=== PATIENT | female | born 1960 | race Caucasian/White ===

== ENCOUNTER 2019-07-18 14:16 | Emergency (ER) | payer OTHER, SELFPAY ==
--- NOTE | 2019-07-18 14:20 | ED.GENADULT ---
HPI - General Adult General Chief complaint: Upper Respiratory Infection Stated complaint: COUGH/SOB Time Seen by Provider: 07/18/19 14:19 Source: patient Mode of arrival: ambulatory Limitations: no limitations History of Present Illness HPI narrative: 58-year-old female patient presents to the [facility] with complaints of cold symptoms for the past 3 days. Patient states that started with a cough and then about 2 days ago she started having fevers as well as a cough. Patient states she has body aches, chills, fatigue, coughing, runny nose, stuffy nose. Patient states that she did not get a flu shot this year. Patient states that she is still been going to work with her symptoms. Patient denies any chest pain or shortness of breath at this time. Patient states she has been taking [id number] Mucinex and Tylenol for her symptoms. Related Data Home Medications Medication Instructions Recorded Confirmed aspirin [Adult Low Dose Aspirin] 81 mg PO DAILY 07/18/19 07/18/19 bupropion HCl 300 mg PO DAILY 07/18/19 07/18/19 esomeprazole magnesium 20 mg PO DAILY 07/18/19 07/18/19 venlafaxine 150 mg PO DAILY 07/18/19 07/18/19 Allergies Allergy/AdvReac Type Severity Reaction Status Date / Time Sulfa (Sulfonamide Allergy Mild RASH Verified 03/14/18 20:37 Antibiotics) Review of Systems Review of Systems: Narrative: CONSTITUTIONAL: Positive fever, chills, body aches and sweats. EYES: Denies visual changes, redness, or discharge. ENT: Nares clear, no rhinorrhea or epistaxis. Mucous membranes moist. No CSF leak. No ecchymosis or open wounds. No obvious deformity. No septal hematoma. No honey tenderness of zygoma, maxilla, or mandible. Positive rhinorrhea, congestion, sore throat, positive otalgia. CARDIOVASCULAR: Denies chest pain, palpitations, or edema. RESPIRATORY: Positive cough, Dyspnea. GASTROINTESTINAL: Denies abdominal pain, nausea, vomiting, or diarrhea. GENITOURINARY: Denies dysuria or hematuria. SKIN: Denies rash or itching. MUSCULOSKELETAL: Denies back pain, joint pain, or myalgia. NEUROLOGIC: Denies headache, numbness, or weakness. PSYCHIATRIC: Denies anxiety or depression. [facility] Past Medical History Medical History Depression Surgical History Surgical History H/O section Social History Social History Smoking status: Never smoker Gender identity (if verbalized by the patient): Female Comments At the time of my signature I agree with nursing past medical history, surgical, social, and family history. There is no relevant family history pertinent to the presenting complaint. Exam Narrative: Exam Narrative: GENERAL: ill-appearing, well-nourished, and in no acute distress. HEAD: Normocephalic, atraumatic. EYES: PERRLA and EOMI. ENT: Nares with erythema and edema noted bilaterally, no rhinorrhea or epistaxis. Mucous membranes moist. Posterior pharynx no erythema, tonsillar edema, exudates or lesions present. Bilateral TMs are clear no erythema or foreign bodies in the canal. NECK: Supple. No lymphadenopathy CHEST: Clear to auscultation. No respiratory distress. No tripoding noted. HEART: Regular rate and rhythm. No murmur heard. Normal peripheral pulses. ABDOMEN: Soft, nontender, nondistended, normal active bowel sounds. EXTREMITIES: Normal range of motion. No edema. SKIN: Warm, dry, no rash. NEURO: No focal deficits. Alert and oriented x3. Course Vital Signs Vital signs: Vital Signs Temperature 37.8 C H 07/18/19 14:32 Pulse Rate 85 07/18/19 14:32 Respiratory Rate 07/18/19 14:32 Blood Pressure 150/90 H 07/18/19 14:32 Pulse Oximetry 97 07/18/19 14:32 Temperature 37.8 C H 07/18/19 14:32 Pulse Rate 85 07/18/19 14:32 Respiratory Rate 20 07/18/19 14:32 Blood Pressure 150/90 H 07/18/19 14:32 P
[2019-07-18 14:32] VITALS: BP 150/90; PULSE 85; RESP 20; TEMP 37.8; O2SAT 97
== END 2019-07-18 14:48 | disposition home or self-care (01) ==
PROVIDERS: Emergency Provider Nurse Practitioner Family
DX: J10.1 Influenza due to other identified influenza virus with other respiratory manifestations (principal); F32.9 Major depressive disorder, single episode, unspecified
CPT/HCPCS: 87804; 99213; G0463

== ENCOUNTER 2019-11-15 00:25 | Outpatient (CLI) | payer OTHER, SELFPAY ==
[2019-11-15 20:58] LABS: SARS-CoV-2 RNA PCR Negative
== END 2019-11-15 00:26 | disposition home or self-care (01) ==
LOC: ANHCOVIDDT 00:25
PROVIDERS: PCP Family Medicine; Visit Provider Internal Medicine Gastroenterology
DX: Z01.818 Encounter for other preprocedural examination (principal); Z11.59 Encounter for screening for other viral diseases
CPT/HCPCS: 87635; C9803; U0003

== ENCOUNTER 2019-11-18 01:36 | Day surgery (SDC) | payer OTHER, SELFPAY ==
[2019-11-15 08:38] VITALS: BMI 33.0
[2019-11-18 07:58] VITALS: BP 148/93; PULSE 92; RESP 20; TEMP 36.4; O2SAT 97
--- NOTE | 2019-11-18 08:14 | WPDANESEPPF ---
Anes - Initial Pre Proc Eval Procedure: Operation Date: 11/18/19 09:00 Proposed Procedures p Screening Colonoscopy - Shashank Hinds MD Date/Time: 11/18/19 08:14 Surgeon: Shashank Hinds MD Pre Op Diagnosis: Neoplasm Screening Patient Data Age: 59 Gender: F Height: 1.65 m Weight: 95.7 kg Last Vital Signs Temp 36.4 C 11/18/19 07:58 Pulse 92 11/18/19 07:58 Resp 20 11/18/19 07:58 BP 148/93 H 11/18/19 07:58 Pulse Ox 97 11/18/19 07:58 Allergies Allergy/AdvReac Type Severity Reaction Status Date / Time Sulfa (Sulfonamide Allergy Mild RASH Verified 11/18/19 07:53 Antibiotics) Home Medications Medication Instructions Recorded Confirmed Type aspirin [Adult Low Dose Aspirin] 81 mg PO DAILY 07/18/19 11/15/19 History bupropion HCl 300 mg PO DAILY 07/18/19 11/15/19 History esomeprazole magnesium 20 mg PO DAILY 07/18/19 11/15/19 History venlafaxine 150 mg PO DAILY 07/18/19 11/15/19 History lisinopril 20 mg PO DAILY 11/15/19 11/15/19 History loperamide [Imodium A-D] 2 mg PO DAILY 11/15/19 11/15/19 History trospium 20 mg PO DAILY 11/15/19 11/15/19 History Patient hx anesthesia problems: none Family hx anesthesia problems: none PMFSH Past Medical History Medical History (Updated 11/18/19 @ 08:16 by Anson Jimenez MD) Anxiety Asthma Depression Gastroesophageal reflux disease HTN (hypertension) IBS (irritable bowel syndrome) Obesity Surgical History Surgical History H/O section Social History Social History (Updated 11/15/19 @ 08:45 by Stephanie Patel RN) Smoking status: Current every day smoker Tobacco type: e-cigarettes/vaping Gender identity (if verbalized by the patient): Female Anes - Eval Final PreProcedure Day of Procedure 11/18/19 08:14 Patient weight: obese Heart: regular rate and rhythm Lungs: clear to auscultation and normal air movement Airway: Mallampati scale class II Neurological: alert and oriented Last oral intake: >/= 8 hours ASA classification: III Emergent: no Anesthetic plan: proceed Anesthesia type and monitoring: general GIVS Informed Consent: The patient's anesthetic plan and its attendant risks and benefits were discussed with the patient/family/POA. Questions were solicited and answers provided to the satisfaction of the patient/family/POA.
[2019-11-18] MEDS: LACTATED RINGERS 1,000 ML 150 ML IV CONT (08:16)
--- NOTE | 2019-11-18 08:26 | WPDGICN ---
Assessment and Plan Assessment and plan (1) Encounter for screening for colorectal malignant neoplasm: Code(s): Z12.11 - Encounter for screening for malignant neoplasm of colon; Z12.12 - Encounter for screening for malignant neoplasm of rectum Status: Acute Assessment and Plan: Patient presents for neoplasia screening colonoscopy. She appears to be at average risk. Colonoscopy to be performed with further recommendations subsequently. GI Consult Note Consult date/time: 11/18/19 08:26 HPI: Kaylin Reis is a 59 year old female seen in evalutation at the request of Dr Wilson Mercado. Patient presents for neoplasia screening colonoscopy. Patient's current weight appetite bowel movements are normal. Patient denies abdominal pain. Her bowel habits are normal. She denies any obvious blood in her stools. Family history is noncontributory. Review of Systems Review of Systems: All systems reviewed & are unremarkable except as noted in HPI and below PMFSH Past Medical History Medical History Anxiety Asthma Depression Gastroesophageal reflux disease HTN (hypertension) IBS (irritable bowel syndrome) Obesity Surgical History Surgical History H/O section Social History Social History Smoking status: Current every day smoker Tobacco type: e-cigarettes/vaping Gender identity (if verbalized by the patient): Female Meds Home Medications and Allergies Home Medications Medication Instructions Recorded Confirmed Type aspirin [Adult Low Dose Aspirin] 81 mg PO DAILY 07/18/19 11/15/19 History bupropion HCl 300 mg PO DAILY 07/18/19 11/15/19 History esomeprazole magnesium 20 mg PO DAILY 07/18/19 11/15/19 History venlafaxine 150 mg PO DAILY 07/18/19 11/15/19 History lisinopril 20 mg PO DAILY 11/15/19 11/15/19 History loperamide [Imodium A-D] 2 mg PO DAILY 11/15/19 11/15/19 History trospium 20 mg PO DAILY 11/15/19 11/15/19 History Allergies Allergy/AdvReac Type Severity Reaction Status Date / Time Sulfa (Sulfonamide Allergy Mild RASH Verified 11/18/19 07:53 Antibiotics) Vital Signs Vital Signs - 24 hr 11/18/19 07:58 Temperature 36.4 C Pulse Rate 92 Respiratory Rate 20 Blood Pressure 148/93 H Pulse Oximetry 97 Exam Narrative: Exam Narrative: Physical exam reveals patient to be alert. Vital signs stable. HEENT exam unremarkable. Lungs are clear to auscultation and percussion. Heart is without murmur or extra sounds. Abdominal exam bowel sounds are present soft nontender with no organomegaly. Digital external rectal exam is normal.
[2019-11-18 09:29] VITALS: BP 140/74; PULSE 82; RESP 15; O2SAT 96
[2019-11-18 09:39] VITALS: BP 141/63; PULSE 77; RESP 14; O2SAT 95
[2019-11-18 09:49] VITALS: BP 141/80; PULSE 80; RESP 18; O2SAT 99
== END 2019-11-18 10:11 | disposition home or self-care (01) ==
PROVIDERS: PCP Family Medicine; Visit Provider Internal Medicine Gastroenterology
PROC: 0DJD8ZZ Inspection of Lower Intestinal Tract, Via Natural or Artificial Opening Endoscopic (ICD-10-PCS; CPT 45378; principal; 2019-11-18 09:00)
DX: Z12.11 Encounter for screening for malignant neoplasm of colon (principal); D12.3 Benign neoplasm of transverse colon; K57.30 Diverticulosis of large intestine without perforation or abscess without bleeding; I10 Essential (primary) hypertension; J45.909 Unspecified asthma, uncomplicated; K21.9 Gastro-esophageal reflux disease without esophagitis; K58.9 Irritable bowel syndrome, unspecified; F41.8 Other specified anxiety disorders; E66.9 Obesity, unspecified; Z68.35 Body mass index [BMI] 35.0-35.9, adult; F17.290 Nicotine dependence, other tobacco product, uncomplicated; Z79.82 Long term (current) use of aspirin
CPT/HCPCS: 45385; 88305; J2001; J2704; J7120

== ENCOUNTER 2020-05-13 06:54 | Outpatient (NON) | payer OTHER, SELFPAY ==
[2020-05-13 19:55] LABS: SARS-CoV-2 RNA PCR Negative
== END 2020-05-13 06:55 ==
LOC: ANHCOVIDDT 06:59
PROVIDERS: PCP Family Medicine; Visit Provider Family Medicine
DX: R05 Cough (principal); Z20.828 Contact with and (suspected) exposure to other viral communicable diseases
CPT/HCPCS: 87635; C9803; U0003

== ENCOUNTER 2023-02-20 12:02 | Emergency (ER) | payer SELFPAY ==
[2023-02-20 12:14] VITALS: BP 134/83; PULSE 76; RESP 16; TEMP 36.2; O2SAT 97
--- NOTE | 2023-02-20 12:34 | ED.DIZZY ---
HPI - Dizziness General Chief Complaint: Upper Respiratory Infection Stated Complaint: dizziness Time Seen by Provider: 02/20/23 12:40 Source: patient Mode of arrival: ambulatory Limitations: no limitations History of Present Illness HPI Narrative: Kaylin is a 62-year-old female patient presenting to the clinic today with complaints of dizziness that began over the weekend. States that she has chronic rhinitis. Reports that she has been out of her bupropion,indapamide, and Adderall. Contacted her PCP's office and they will not refill these medications for her until she is evaluated. Also requesting refill on her albuterol inhaler. Has been out of medications x1-2 weeks Related Data Home Medications Medication Instructions Recorded Confirmed aspirin 81 mg tablet,delayed 81 mg PO DAILY 07/18/19 02/20/23 release (Adult Low Dose Aspirin) bupropion HCl 300 mg 24 hr tablet, 300 mg PO DAILY 07/18/19 02/20/23 extended release esomeprazole magnesium 20 mg 20 mg PO DAILY 07/18/19 02/20/23 capsule,delayed release venlafaxine 150 mg 150 mg PO DAILY 07/18/19 02/20/23 capsule,extended release 24 hr lisinopril 20 mg tablet 20 mg PO DAILY 11/15/19 02/20/23 loperamide 2 mg capsule (Imodium 2 mg PO DAILY 11/15/19 11/15/19 A-D) trospium 20 mg tablet 20 mg PO DAILY 11/15/19 02/20/23 albuterol sulfate 90 mcg/actuation inhalation 02/20/23 breath activated powder inhaler,sensor (Proair Digihaler) indapamide 2.5 mg tablet mg 02/20/23 methylphenidate HCl 20 mg tablet mg 02/20/23 02/20/23 venlafaxine 150 mg mg PO 02/20/23 capsule,extended release 24 hr Allergies Allergy/AdvReac Type Severity Reaction Status Date / Time Sulfa (Sulfonamide AdvReac Mild RASH Verified 02/20/23 12:35 Antibiotics) Review of Systems Review of Systems: Pertinent positives per HPI. Patient denies any fever, chills, rash, headache, visual changes, dizziness, cough, shortness of breath, chest pain, palpitations, nausea, vomiting, diarrhea, constipation, abdominal pain, or any urinary issues. [facility] Past Medical History Medical History (Updated 10/02/23 @ 12:52 by Maurice Gibbons APRN) Anxiety Asthma Depression Gastroesophageal reflux disease HTN (hypertension) IBS (irritable bowel syndrome) Obesity Surgical History Surgical History H/O section Social History Social History Smoking status: Current every day smoker Tobacco type: e-cigarettes/vaping Gender identity (if verbalized by the patient): Female Comments At the time of my signature, I reviewed and agree with the nursing past medical, surgical, social, and family history. There is no relevant family history pertinent to the patient complaint. Exam Narrative: General: Well-developed, well nourished, in no apparent distress Head: Normocephalic, atraumatic Eyes: Pupils equally round and reactive to light bilaterally, EOM intact, sclera and conjunctive clear, no discharge, lids normal, no nystagmus Ears: TMs intact and congested, ear canals clear, no drainage, grossly hearing normal. Nose: Nares patent, clear discharge, no inflammation, no sinus tenderness. Mouth: Oropharynx without lesions or masses, good dentition, MMM. Tongue midline, even rise and fall of uvula Neck: Supple, trachea midline, no enlargement of anterior or posterior cervical nodes, no thyroid masses or goiter palpable. Cardio: Regular rate and rhythm, s1 and s2 normal, no murmur appreciated. Resp: Clear to auscultation bilaterally anteriorly and posteriorly, no rhonchi, rales, wheezing or rubs Musculoskeletal: No deformity, non-tender to palpation, grossly normal range of motion, muscle strength strong and equal, peripheral pulse strong, no edema, no cyanosis, normal gait and station Neuro: Alert and oriented x4 with normal speech, no focal deficits, cranial nerves I
== END 2023-02-20 12:58 | disposition home or self-care (01) ==
PROVIDERS: Emergency Provider Nurse Practitioner Family
DX: R42 Dizziness and giddiness (principal); I10 Essential (primary) hypertension; F17.219 Nicotine dependence, cigarettes, with unspecified nicotine-induced disorders; Z79.82 Long term (current) use of aspirin; Z79.899 Other long term (current) drug therapy; Z76.0 Encounter for issue of repeat prescription
CPT/HCPCS: 99213; G0463

== ENCOUNTER 2023-04-14 13:56 | Emergency (ER) | payer SELFPAY ==
[2023-04-14 14:05] VITALS: BP 144/76; PULSE 82; RESP 18; TEMP 36.6; O2SAT 99
--- NOTE | 2023-04-14 14:29 | ED.URI ---
HPI - URI/Sore Throat General Chief Complaint: Upper Respiratory Infection Stated Complaint: Cough,Congestion,Sore Throat Source: patient and RN notes reviewed History of Present Illness HPI Narrative: 62 yo F presents to urgent care with complaints of congestion, productive cough, and the feeling a trang truck ran over her. Pt states she began feeling blah on Monday and was seen at [facility] ED on Monday. Pt tested negative for Covid, flu, and RSV at that time; was given Tessalon Perles and prednisone. Pt states she thought she was getting better yesterday but today woke up feeling awful. Pt states she feels like there is cotton in her upper chest. Denies any chest pain, fevers, chills, N/V/D. Pt reports sore throat when she coughs. Related Data Home Medications Medication Instructions Recorded Confirmed aspirin 81 mg tablet,delayed 81 mg PO DAILY 07/18/19 04/14/23 release (Adult Low Dose Aspirin) benzonatate 100 mg capsule mg PO 04/14/23 venlafaxine 150 mg mg PO 04/14/23 capsule,extended release 24 hr Allergies Allergy/AdvReac Type Severity Reaction Status Date / Time Sulfa (Sulfonamide AdvReac Mild RASH Verified 04/14/23 14:21 Antibiotics) Review of Systems Review of Systems: Pertinent positives and pertinent negatives per HPI. [facility] Past Medical History Medical History (Updated 04/14/23 @ 14:34 by Josephine Botello APRN) Anxiety Asthma Depression Gastroesophageal reflux disease HTN (hypertension) IBS (irritable bowel syndrome) Obesity Surgical History Surgical History H/O section Social History Social History Smoking status: Current every day smoker Tobacco type: e-cigarettes/vaping Gender identity (if verbalized by the patient): Female Comments At the time of my signature, I reviewed and agree with the nursing past medical, surgical, social, and family history. There is no relevant family history pertinent to the patient complaint. Exam Narrative: GENERAL: This is a well-nourished, well-developed patient, in no apparent distress. HEAD: normocephalic, atraumatic. EYES: Sclera clear/white. Vision is grossly intact. EARS: External ears normal, auditory canals clear and without drainage, TMs normal without perforation. Hearing grossly intact. NOSE: External nose normal with no obvious nasal discharge, nares without redness, no rhinorrhea. + Congestion. THROAT: Mucous membranes moist, posterior pharynx clear. NECK: Neck supple, non-tender without lymphadenopathy, masses or thyromegaly. CARDIOVASCULAR: Regular rate and rhythm without murmurs, gallops, or rubs. RESPIRATORY: Clear to auscultation. Breath sounds equal bilaterally. No wheezes, rales, or rhonchi. SKIN: warm, intact with no suspicious lesions or rash, good texture and turgor. NEURO: awake, alert, and oriented to person, place and time. There were no obvious focal neurologic abnormalities. Course Course Level of Care: Express Care Visit Vital Signs Vital signs: Vital Signs Temperature 97.8 F 04/14/23 14:05 Pulse Rate 82 04/14/23 14:05 Respiratory Rate 18 04/14/23 14:05 Blood Pressure 144/76 H 04/14/23 14:05 Pulse Oximetry 99 04/14/23 14:05 Oxygen Delivery Room Air 04/14/23 14:05 Temperature 97.8 F 04/14/23 14:05 Pulse Rate 82 04/14/23 14:05 Respiratory Rate 18 04/14/23 14:05 Blood Pressure 144/76 H 04/14/23 14:05 Pulse Oximetry 99 04/14/23 14:05 Oxygen Delivery Room Air 04/14/23 14:05 reviewed MDM - URI/Sore Throat MDM Narrative Medical decision making narrative: Take the antibiotics as directed. Use the Flonase as directed. Get plenty of fluids and rest. Increase vitamin-C. Go to the ER with any new or worsening symptoms. Differential Diagnosis Differential diagnosis: Likely upper respiratory infection, otitis media, sinus
== END 2023-04-14 14:45 | disposition home or self-care (01) ==
PROVIDERS: Emergency Provider Nurse Practitioner Family
DX: J32.9 Chronic sinusitis, unspecified (principal); J45.909 Unspecified asthma, uncomplicated; K21.9 Gastro-esophageal reflux disease without esophagitis; I10 Essential (primary) hypertension; E66.9 Obesity, unspecified; Z68.28 Body mass index [BMI] 28.0-28.9, adult; F17.290 Nicotine dependence, other tobacco product, uncomplicated; Z79.82 Long term (current) use of aspirin
CPT/HCPCS: 99213; G0463

== ENCOUNTER 2023-06-20 16:30 | Emergency (ER) | payer SELFPAY ==
--- NOTE | 2023-06-20 16:48 | ED.URI ---
HPI - URI/Sore Throat General Chief Complaint: Upper Respiratory Infection Stated Complaint: congestion,sorethroat History of Present Illness HPI Narrative: 62-year-old female presented for complaint of sinus congestion, headache, neck pain and sore throat. Onset 2 days ago. Also reports vomiting yesterday. History of IBS D and has been having issues with diarrhea over the past few weeks due to work stress. Patient states she needs a work note for her employer excusing her for the next 4 days. Related Data Home Medications Medication Instructions Recorded Confirmed aspirin 81 mg tablet,delayed 81 mg PO DAILY 07/18/19 06/20/23 release (Adult Low Dose Aspirin) methylphenidate HCl 20 mg tablet 20 mg PO TID 06/20/23 06/20/23 (Ritalin) omeprazole 20 mg tablet,delayed 20 mg PO DAILY 06/20/23 06/20/23 release Allergies Allergy/AdvReac Type Severity Reaction Status Date / Time Sulfa (Sulfonamide AdvReac Mild RASH Verified 06/20/23 16:42 Antibiotics) Review of Systems Review of Systems: CONSTITUTIONAL: Denies body aches, fever, chills, or sweats. EYES: Denies visual changes, redness, or discharge. ENT: reports rhinorrhea, congestion, sore throat; denies otalgia. CARDIOVASCULAR: Denies chest pain, palpitations, or edema. RESPIRATORY: Denies dyspnea. GASTROINTESTINAL: reports vomiting, diarrhea. SKIN: Denies rash, itching, or wounds. MUSCULOSKELETAL: Denies back pain, joint pain, or myalgia. NEUROLOGIC: reports headache PMFSH Past Medical History Medical History (Updated 06/20/23 @ 17:16 by Chiraa Love APRN) Anxiety Asthma Depression Gastroesophageal reflux disease HTN (hypertension) IBS (irritable bowel syndrome) Obesity Surgical History Surgical History H/O section Social History Social History Smoking status: Current every day smoker Tobacco type: e-cigarettes/vaping Gender identity (if verbalized by the patient): Female Exam Narrative: GENERAL: mildly Ill-appearing, no acute distress. EYES: conjunctivae clear ENT: Mucous membranes moist. nasal congestion. TMs pearly agustin with normal light reflex bilaterally; no tragal tenderness. NECK: Supple. No lymphadenopathy CHEST: Clear to auscultation, breath sounds equal. No respiratory distress, speaks in full sentences. HEART: Regular rate and rhythm. No murmur heard. SKIN: Warm, dry, no rash. NEURO: Alert and oriented x3. Tearful throughout encounter. Course Course Emergency Course: Patient is aware of diagnosis, understands and agrees to treatment plan. Anticipatory guidance given. Patient agrees to follow-up as directed and is aware of reasons to seek care at the emergency department. Portions of this record may have been created with voice recognition software Level of Care: Express Care Visit Vital Signs Vital signs: Vital Signs Temperature 98.0 F 06/20/23 16:53 Pulse Rate 67 06/20/23 16:53 Respiratory Rate 18 06/20/23 16:53 Blood Pressure 168/99 H 06/20/23 16:53 Pulse Oximetry 98 06/20/23 16:53 Oxygen Delivery Room Air 06/20/23 16:53 Temperature 98.0 F 06/20/23 16:53 Pulse Rate 67 06/20/23 16:53 Respiratory Rate 18 06/20/23 16:53 Blood Pressure 168/99 H 06/20/23 16:53 Pulse Oximetry 98 06/20/23 16:53 Oxygen Delivery Room Air 06/20/23 16:53 MDM - URI/Sore Throat MDM Narrative Medical decision making narrative: Neg covid, flu and strep result reviewed with pt. States her employer told her she has had too many call off's and will need a note that says she cannot return for 4 days. Pt is advised she will not receive a note excusing her for an additional 4 days. Advise supportive treatments. Patient is appropriate for outpatient treatment and follow-up. Differential Diagnosis Differential diagnosis: Likely upper respiratory infection,
[2023-06-20 16:53] VITALS: BP 168/99; PULSE 67; RESP 18; TEMP 36.7; O2SAT 98
== END 2023-06-20 17:18 | disposition home or self-care (01) ==
PROVIDERS: Emergency Provider Nurse Practitioner Family
DX: J06.9 Acute upper respiratory infection, unspecified (principal); Z20.822 Contact with and (suspected) exposure to COVID-19; F17.290 Nicotine dependence, other tobacco product, uncomplicated; J45.909 Unspecified asthma, uncomplicated; K21.9 Gastro-esophageal reflux disease without esophagitis; I10 Essential (primary) hypertension; E66.9 Obesity, unspecified; Z68.28 Body mass index [BMI] 28.0-28.9, adult; F41.9 Anxiety disorder, unspecified; F32.A Depression, unspecified; Z79.82 Long term (current) use of aspirin
CPT/HCPCS: 87081; 87426; 87804; 87880; 99213; G0463

== ENCOUNTER 2024-08-23 12:28 | Emergency (ER) | payer OTHER, SELFPAY ==
--- OUTSIDE RECORDS SUMMARY | 2024-08-23 12:30 | XMS_ITS | Clinical Summary ---
Author Organization [facility] Address [address] [place] [address] Care Team Providers Care Strawhat Inspector And Packer Name Role Phone None, Provider MD Primary Care Provider Unavaila ble Allergies Active Allergy Reactions Criticality Noted Date Comments Sulfa Antibiotics Rash Low 06/09/2017 Medications ALPRAZolam 0.5 MG tablet Take 1 tablet by mouth 3 (three) times daily. 8 Active Biotin 5000 MCG Tab Take 1 tablet by mouth daily. 8 Active loperamide 2 MG capsule Take 1 capsule by mouth as needed. 8 Active albuterol sulfate HFA 108 (90 Base) MCG/ACT inhalerIndication s:Mild intermittent asthma, unspecified whether complicated ([facility]) Inhale 2 puffs into the lungs every 6 (six) hours as needed for Wheezing. 8 g 6 9 Active omeprazole 20 MG capsuleIndication s:Gastroesophagea l reflux disease without esophagitis Take 2 capsules (40 mg total) by mouth daily. 30 capsule 7 9 Active BUPROPION XL 300 MG 24 hr tabletIndications :Depression, unspecified depression type TAKE 1 TABLET BY MOUTH EVERY DAY 90 tablet 0 Active VENLAFAXINE XR 150 MG 24 hr capsuleIndication s:Depression, unspecified depression type TAKE 1 CAPSULE BY MOUTH EVERY DAY 30 capsule 3 0 Active Active Problems Problem Noted Date Diagnosed Date ADD (attention deficit disorder) 01/10/2018 Diverticulitis 08/23/2017 Acid reflux 06/09/2017 Anxiety 06/09/2017 Depression 06/09/2017 Irritable bowel syndrome (IBS) 06/09/2017 Resolved Problems Problem Noted Date Diagnosed Date Resolved Date Screening for breast cancer 01/10/2018 01/31/2020 Wears contact lenses 06/09/2017 020 Encounter for preventive health examination 06/05/2017 01/31/2020 Family History Medical History Relation Comments COPD Father Cancer Father skin Heart Disease Father pacemaker Heart Disease Mother arterial fibrill ation Relation Status Comments Father Mother Social History Tobacco Use Types Packs/Day Years Used Date Smoking Tobacco: Former Smokeless Tobacco: Never Tobacco Cessation:Counseling Given: Not Answered Alcohol Use Standard Drinks/Week Comments Yes 0 (1 standard drink = 0.6 oz pur e alcohol) social Comments Unknown Sex and Gender Information Value Date Recorded Sex Assigned at Female 11/12/2018 1:52 PM CDT Legal Sex Female 7:18 PM CDT Gender Identity Female 11/12/2018 1:52 PM CDT Sexual Orientation Straight 11/12/2018 1: 52 PM CDT Last Filed Vital Signs Vital Sign Reading Time Taken Comments Blood Pressure 170/88 04/12/2023 5:32 AM [employer] Pulse 67 04/12/2023 5:32 AM [employer] Temperature 36.2 C (97.1 F) 04/12/2023 5:32 AM [employer] Respiratory Rate 20 04/12/2023 5:32 AM [employer] Oxygen Saturation 100% 04/12/2023 5:32 AM [employer] Inhaled Oxygen Concentration - - Weight 96.6 kg (213 lb) 04/12/2023 4:04 AM [employer] Height 165.7 cm (5' 5.25 ) 04/12/2023 4:04 AM CS T Body Mass Index 35.17 04/12/2023 4:04 AM [employer] Plan of Treatment Health Maintenance Due Date Last Done Comments Cervical Cancer Screening Pa p Smear (Age 30 to 64) Every 3 Years 1959 Colorectal Cancer Screening Colonoscopy (10 Years) 1959 Annual Physical 10/19/1962 Hepatitis C 10/19/1977 Cervical Cancer Screening Pa p with HPV Testing (Age 30 to 64) Every 5 Years 10/19/1989 Cervical Cancer Screening wi th HPV 10/19/1989 Mammogram Screening 1999 Zoster Vaccines (1 of 2) 10/19/2009 COVID-19 Vaccine (2023- 5 season) 2024 05/19/2021, 10/30/2020, 10/02/2020 Influenza Adult (#1) 2024 DTaP, Tdap and Td Vaccines ( 2 - Td or Tdap) 03/14/2028 03/14/2018 RSV Immunization or 60+ Years (1 - 1-dose 75+ series) 10/19/2034 Meningococcal B Vaccine Aged Out No l onger eligible based on patient's age to complete this topic Meningococcal Vaccine Aged Out No katherine mary eligible based on patient's age to complete this topic Pneumococcal Vaccine: Pediatrics (0 to 5 Years) and At-Risk Patients (6 to 64 Years) Aged Out No longer eligible b ased on patient's age to complete this topic RSV Immunizations Under 20 Months Aged Out No longer eligible b ased on patient's age to complete this topic Care Teams Strawhat Inspector And Packer Relationship Specialty Start Date End Date None, Provider, MD PCP - General UNKNOWN PHYSICIAN SPECIALTY 04/12/23
--- OUTSIDE RECORDS SUMMARY | 2024-08-23 12:30 | XMS_ITS | Clinical Summary ---
Author Organization [facility] Address [address] [place] [address] Phone Care Team Providers Care Marine Radio Installer And Servicer Name Role Phone Wilson Mercado MD Primary Care Provider Allergies Active Allergy Reactions Criticality Noted Date Comments Sulfa (Sulfonamide Antibiotics) Rash Low 04/21 Medications losartan (COZAAR) 100 mg tablet Take 100 mg by mouth daily. Active trospium (SANCTURA) 20 mg Tablet Take 20 mg by mouth daily at bedtime. Active HYDROcodone-karel taminophen (HYCET) 7.5-325 mg/15 mL SolutionIndicat ions:Obesity (BMI 35.0-39.9 without comorbidity) Take 15 mL by mouth every 6 hours as needed for Pain. Max Daily Amount: 60 mL 280 mL 06/24/2021 4:[address] MA[address]ER 06/23/2021 Active ondansetron (ZOFRAN ODT) 4 mg Tablet, Rapid Dissolve Dissolve 1 tablet on top of tongue, then swallow with saliva every 6 hours as needed for Nausea or Nausea/Vomiti ng. 28 Tablet 06/24/2021 4:[address] MAKER 06/23/2021 Active famotidine (PEPCID) 20 mg tablet Take 1 Tablet (20 mg) by mouth 2 times daily. 60 Tablet 06/24/2021 4:[address] MAKER 06/23/2021 Active venlafaxine (EFFEXOR) 75 mg tablet Take 1 Tablet (75 mg) by mouth 2 times daily with meals. 60 Tablet 06/24/2021 Active buPROPion (WELLBUTRIN) 75 mg tablet Take 2 Tablets (150 mg) by mouth 2 times daily. 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 06/23/2021 Benign hypertension 06/23/2021 Urinary frequency 06/23/2021 Gastroesophageal reflux disease without esophagi tis 06/23/2021 Chronic back pain 06/23/2021 Immunizations Immunization Administration Dates Next Due (SPIKEVAX) (12 YRS UP PRIMAR Y SERIES) COVID-19 VACCINE - MRNA-1273(PF) 100 MCG/0.5 ML IM SUSP 05/19/2021,10/30/2020,10/02/2020 Family History Medical History Relation Name Comments Heart Disease Father Respiratory Disease Father Heart Disease Mother Relation Name Status Comments Father Mother Social History Tobacco Use Types Packs/Day Years Used Date Smoking Tobacco: Never Smokeless Tobacco: Never Alcohol Use Standard Drinks/Week Comments Yes 0 (1 standard drink = 0.6 oz pur e alcohol) Comments No Sex and Gender Information Value Date Recorded Sex Assigned at Not on file Legal Sex Female 12:[address] Gender Identity Not on file Sexual Orientation Not on file Last Filed Vital Signs Vital Sign Reading Time Taken Comments Blood Pressure 155/86 06/24/2021 12:[address] MAKER Pulse 92 06/24/2021 12:[address] MAK[address] Temperature 36.8 C (98.3 F) 06/24/2021 12:[address] MAKER Respiratory Rate 18 06/24/2021 12:[address] MAKER Oxygen Saturation 94% 06/24/2021 12:[address]KER Inhaled Oxygen Concentration - - Weight 93 kg (205 lb) 06/23/2021 9:[address] MAK[address] Height 165.1 cm (5' 5 ) 06/23/2021 10:[address] MAK[address] Body Mass Index 34.11 06/23/2021 9:[address] MAKER Plan of Treatment Health Maintenance Due Date Last Done Comments DTAP/TDAP/TD VACCINES (1 - Tdap) 10/19/1978 HPV/Cotest (-29) 10/19/1980 PAP SMEAR 10/19/1980 CERVICAL CANCER SCREENING 10/19/1989 HPV/Cotest (30-65) 10/19/1989 PAP SMEAR 10/19/1989 BREAST CANCER SCREENING 1999 COLORECTAL SCREENING 10/19/2004 Colorectal Cancer Screening 10/19/2004 FIT-DNA Q 3 years 10/19/2004 FIT/FOBT Q 1 year 10/19/2004 Flex Sig/CT Colonography Q 5 years 10/19/2004 ZOSTER VACCINE (1 of 2) 10/19/2009 INFLUENZA VACCINE (#1) 2023 COVID-19 Vaccine (2023-2 5 season) 2024 05/19/2021, 10/30/2020, 10/02/2020 RSV VACCINE (60+ or ) (1 - 1-dose 75+ series) 10/19/2034 PNEUMOCOCCAL VACCINE 0-49 YEARS Aged Out No longer eligible b ased on patient's age to complete this topic Medical Devices Implanted Type Area Tail Board Worker Device Identifier Shelf Expiration Date Model / Serial / Lot Seamguard Endogia 60 Prpl [id number] - [id number] Implanted:Qt y: 1 on 06/23/2021 at [facility] Biological N/A: Stomach [employer] [id number] 02/17/2024 12BSGTRI 60P / / [id number] Seamguard Endogia 60 Prpl [id number] - [id number] Implanted:Qt y: 1 on 06/23/2021 at [facility] Biological N/A: Stomach [employer] [id number] 02/17/2024 12BSGTRI 60P / / [id number] Seamguard Endogia 60 Blk [id number] - [id number] Implanted:Qt y: 1 on 06/23/2021 at [facility] Biological N/A: Stomach [employer] [id number] 02/08/2024 12BSGTRI 60B / / [id number] Seamguard Endogia 60 Prpl [id number] - [id number] Implanted:Qt y: 1 on 06/23/2021 at [facility] Biological N/A: Stomach [employer] [id number] 02/17/2024 12BSGTRI 60P / / [id number] Seamguard Endogia 60 Blk [id number] - [id number] Implanted:Qt y: 1 on 06/23/2021 at [facility] N/A: Stomach [employer] [id number] 02/08/2024 [id number] 60B / / [id number] Insurance RX [employer] RX Member Subscriber Plan / Payer (Ef fective 2021-Present) Name:Kaylin Reis Relation to Subscriber:Self Name:Kaylin Reis Subscriber ID:Not on file Payer ID:Not on file Group ID:[id number] Type:RX Commercial Address: [employer] [place] PLANS (INTERNAL) [facility] Internal Plans Advance Directives For more information, please contact: [phone] * Full Code (Latest Code Status on File) Date Activated Date Inactivated Comments 06/23/2021 3:34 PM 06/24/2021 6:13 PM * Full Code Date Activated Date Inactivated Comments 06/23/2021 9:31 AM 06/23/2021 3:34 PM Care Teams Marine Radio Installer And Servicer Relationship Specialty Start Date End Date Wilsno Mercado MD [address] [place] [phone] PCP - General Family Practice 06/04/21
--- OUTSIDE RECORDS SUMMARY | 2024-08-23 12:30 | XMS_ITS | Referral Summary ---
Author Organization [facility] [address] Address [address] [place] [address] Care Team Providers Care Name Role Phone Wilson Mercado MD Primary Care Provider Allergies Active Allergy Reactions Criticality Noted Date Comments Sulfa (Sulfonamide Antibiotics) Rash Medium 04/21 Medications buPROPion XL (WELLBUTRIN XL) 300 mg 24 hr tablet Take 300 mg by mouth 09/09/2019 Active losartan (COZAAR) 100 mg tablet Take 100 mg by mouth daily Active venlafaxine 150 mg tablet extended release 24hr 24 hr tablet Take 150 mg by mouth Active Active Problems No known active problems Social History Tobacco Use Types Packs/Day Years Used Date Smoking Tobacco: Never Assessed Personal Safety Answer Date Recorded Getting School Help Needed Not on file 08/05 Comments Unknown Sex and Gender Information Value Date Recorded Sex Assigned at Not on file Legal Sex Female 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
--- OUTSIDE RECORDS SUMMARY | 2024-08-23 12:30 | XMS_ITS | Clinical Summary ---
Author Organization [facility] [address] Address [address] [place] [address] Care Team Providers Care Manufacture Specialist Name Role Phone Wilson Mercado MD Primary Care Provider [phone] Allergies Active Allergy Reactions Criticality Noted Date [...] on file Legal Sex Female 8:46 AM RESEARCH SCHOLAR Gender Identity Not on file Sexual Orientation Not on file Plan of Treatment Not on file Insurance [facility] HMO/PPO Address: [facility] [address] [place] [address] Care Teams Manufacture Specialist Relationship Specialty Start Date End Date Wilson Mercado MD [address] [place] [phone] PCP - General Family Medicine 06/21/21
--- NOTE | 2024-08-23 12:32 | ED.URI ---
HPI - URI/Sore Throat General Chief Complaint: Upper Respiratory Infection Stated Complaint: sore throat Time Seen by Provider: 08/23/24 12:29 Source: patient Mode of arrival: ambulatory Limitations: no limitations History of Present Illness HPI Narrative: Kaylin is a 63-year-old female patient presenting to the clinic today with complaints of sore throat, cough, and nasal congestion. She reports this has been going on since last night. No fever, chills, and body aches. 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 Denies any chest pain or shortness of breath MD elicited complaint: cough, sore throat and nasal congestion Related Data Home Medications ?Medication ?Instructions ?Recorded ?Confirmed ?Last Taken ?Type aspirin 81 mg tablet,delayed 81 mg PO DAILY 07/18/19 06/20/23 11/17/19 History release (Adult Low Dose Aspirin) methylphenidate HCl 20 mg tablet 20 mg PO TID 06/20/23 06/20/23 Unknown History (Ritalin) omeprazole 20 mg tablet,delayed 20 mg PO DAILY 06/20/23 06/20/23 Unknown History release Allergies Allergy/AdvReac Type Severity Reaction Status Date / Time Sulfa (Sulfonamide AdvReac Mild RASH Verified 08/23/24 12:29 Antibiotics) Review of Systems Review of Systems: Pertinent positives per HPI. Patient denies any fever, chills, rash, headache, visual changes, dizziness, shortness of breath, chest pain, palpitations, nausea, vomiting, diarrhea, constipation, abdominal pain, or any urinary issues. [facility] Past Medical History Medical History (Updated 08/23/24 @ 12:50 by Maurice Gibbons APRN) Obesity Anxiety IBS (irritable bowel syndrome) Gastroesophageal reflux disease Asthma HTN (hypertension) Depression Surgical History Surgical History H/O section Social History Social History Smoking status: Current every day smoker Tobacco type: e-cigarettes/vaping Gender identity (if verbalized by the patient): Female Comments At the time of my signature, I reviewed and agree with the nursing past medical, surgical, social, and family history. There is no relevant family history pertinent to the patient complaint. Exam Narrative: General: Well-developed, well nourished, in no apparent distress Head: Normocephalic, atraumatic Eyes: Pupils equally round and reactive to light bilaterally, EOM intact, sclera and conjunctive clear, no discharge, lids normal Ears: TMs intact and congested, ear canals clear, no drainage, grossly hearing normal. Nose: Nares patent, clear nasal discharge, no inflammation, no sinus tenderness. Mouth: Oral pharynx without lesions or masses, good dentition, MMM. Postnasal drip Neck: Supple, trachea midline, no enlargement of anterior or posterior cervical nodes, no thyroid masses or goiter palpable. Cardio: Regular rate and rhythm, s1 and s2 normal, no murmur appreciated. Resp: Clear to auscultation bilaterally, no rhonchi, rales, wheezing or rubs Course Course Emergency Course: Portions of this record may have been created with voice recognition software. Level of Care: Express Care Visit Vital Signs Vital signs: Vital Signs Temperature 36.1 C L 08/23/24 12:44 Pulse Rate 67 08/23/24 12:44 Respiratory Rate 17 08/23/24 12:44 Blood Pressure 152/73 H 08/23/24 12:44 Pulse Oximetry 100 08/23/24 12:44 Oxygen Delivery Room Air 08/23/24 12:44 Temperature 36.1 C L 08/23/24 12:44 Pulse Rate 67 08/23/24 12:44 Respiratory Rate 17 08/23/24 12:44 Blood Pressure 152/73 H 08/23/24 12:44 Pulse Oximetry 100 08/23/24 12:44 Oxygen Delivery Room Air 08/23/24 12:44 Vital signs reviewed MDM - URI/Sore Throat MDM Narrative Medical decision making narrative: At the time of visit patient is resting comfortably on the exam table. Patient appears to be nontoxic. Labs: COVID, influenza, and strep test were all negative in the clinic today. We will send strep for culture. Plan: I suspect patient has URI with pharyngitis/postnasal drip. Supportive measures were discussed with the patient and they voiced understanding discharge instructions and agrees to treatment plan. Return precautions reviewed Differential Diagnosis Differential diagnosis: Likely upper respiratory infection, otitis media, sinusitis, viral infection, bronchitis, influenza, pharyngitis and other (COVID) Lab Data Labs: Lab Results 08/23/24 Range/Units 12:51 POC Grp A Strep Screen Negative (Negative) Discharge Plan Discharge Clinical Impression: Upper respiratory infection with cough and congestion Pharyngitis Qualifiers: Pharyngitis/tonsillitis etiology: unspecified etiology Qualified Code(s): J02.9 - Acute pharyngitis, unspecified Patient Disposition: Home, Self-Care Condition: Stable Instructions: Antibiotic Form, Cold Symptoms (ED), Postnasal Drip (DC) Additional Instructions: COVID, influenza, and strep test were all negative in the clinic today. We will send strep for culture. May take Coricidin HBP for cold/flu symptoms Increase fluids and stay well hydrated Tylenol/motrin for pain/fever Flonase and OTC antihistamines as directed Vicks vapor rub to open sinuses Sinus rinses for congestion Cepacol spray, cough drops, throat lozenges, warm tea with honey/lemon, gargle salt water to soothe throat BRAT diet for diarrhea Clear liquids x 24 hours then advance as tolerated for nausea/vomiting Go to the ED if you develop a worsening in your condition- high fever not controlled by Tylenol or Motrin, dehydration, weakness, lethargy, shortness of breath, or chest pain. Follow up with your PCP in 3-5 days if symptoms persist. Patient Language: Tamazight Prescriptions: No Action bupropion HCl 300 mg tablet extended release 24 hr 300 mg PO QAM 30 Days Qty: 30 0RF albuterol sulfate 90 mcg/actuation HFA aerosol inhaler 2 puff inhalation Q4-6H PRN (Reason: shortness of breath or wheezing) 30 Days Qty: 8.5 0RF methylphenidate HCl [Ritalin] 20 mg Tablet 20 mg PO TID omeprazole 20 mg Tablet,Delayed Release (Dr/Ec) 20 mg PO DAILY aspirin [Adult Low Dose Aspirin] 81 mg Tablet,Delayed Release (Dr/Ec) 81 mg PO DAILY fluticasone propionate [24 Hour Allergy Relief] 50 mcg/actuation spray,suspension 1 spray intranasal BID Qty: 16 0RF Rx Instructions: administer into each nostril Follow-up/Referrals: PHYSICIAN,CITY CLERK [Primary Care Provider] - Stand Alone Forms: Work/School Release IP Time of Disposition: 12:55 Quality NIHSS Nursing Documentation ED NIHSS nursing documentation: reviewed/agree
[2024-08-23 12:44] VITALS: BP 152/73; PULSE 67; RESP 17; TEMP 36.1; O2SAT 100
[2024-08-23 12:52] LABS: EDSTREPNEGPOS1 Negative (Negative)
[2024-08-23 13:05] LABS: EDCOVIDSCREEN Negative (Negative); EDINFLUASCREEN Negative (Negative); EDINFLUBSCREEN Negative (Negative)
== END 2024-08-23 13:04 | disposition home or self-care (01) ==
PROVIDERS: Emergency Provider Nurse Practitioner Family; Referring Provider Emergency Medicine
DX: J06.9 Acute upper respiratory infection, unspecified (principal); R05.9 Cough, unspecified; J02.9 Acute pharyngitis, unspecified; Z20.822 Contact with and (suspected) exposure to COVID-19; F17.290 Nicotine dependence, other tobacco product, uncomplicated; I10 Essential (primary) hypertension; K21.9 Gastro-esophageal reflux disease without esophagitis; K58.9 Irritable bowel syndrome, unspecified; J45.909 Unspecified asthma, uncomplicated; E66.9 Obesity, unspecified; Z68.25 Body mass index [BMI] 25.0-25.9, adult; Z79.82 Long term (current) use of aspirin
CPT/HCPCS: 87081; 87426; 87804; 87880; 99213; G0463

== ENCOUNTER 2024-10-25 14:46 | Emergency (ER) | payer OTHER, SELFPAY ==
--- OUTSIDE RECORDS SUMMARY | 2024-10-25 14:48 | XMS_ITS | Referral Summary ---
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
--- OUTSIDE RECORDS SUMMARY | 2024-10-25 14:48 | XMS_ITS | Clinical Summary ---
Author Organization [facility] [address] Address [address] [place] [address] Care Team Providers Care Office Technology Instructor Name Role Phone Wilson Mercado MD Primary Care Provider [phone] Allergies Active Allergy Reactions Criticality Noted Date [...] on file Legal Sex Female 8:46 AM ARMATURE INSPECTOR Gender Identity Not on file Sexual Orientation Not on file Plan of Treatment Not on file Insurance [facility] HMO/PPO Address: [facility] [address] [place] [address] Care Teams Office Technology Instructor Relationship Specialty Start Date End Date Wilson Mercado MD [address] [place] [phone] PCP - General Family Medicine 06/21/21
--- OUTSIDE RECORDS SUMMARY | 2024-10-25 14:48 | XMS_ITS | Clinical Summary ---
Author Organization [facility] Address [address] [place] [address] Phone Care Team Providers Care Chronic Disease Manager Name Role Phone Wilson Mercado MD Primary [...] 60 mL 280 mL 06/24/2021 4:14 PM SALT PLANT OPERATOR 06/23/2021 Active ondansetron (ZOFRAN ODT) 4 mg Tablet, Rapid Dissolve Dissolve 1 tablet on top of tongue, then swallow with saliva every 6 hours as needed for Nausea or Nausea/Vomiti ng. 28 Tablet 06/24/2021 4:14 PM SALT PLANT OPERATOR 06/23/2021 Active famotidine (PEPCID) 20 mg tablet Take 1 Tablet (20 mg) by mouth 2 times daily. 60 Tablet 06/24/2021 4:14 PM SALT PLANT OPERATOR 06/23/2021 Active venlafaxine (EFFEXOR) 75 mg tablet [...] on file Legal Sex Female 12:59 PM SALT PLANT OPERATOR Gender Identity Not on file Sexual Orientation Not on file Last Filed Vital Signs Vital Sign Reading Time Taken Comments Blood Pressure 155/86 06/24/2021 12:42 PM SALT PLANT OPERATOR Pulse 92 06/24/2021 12:42 PM SALT PLANT OPERATOR Temperature 36.8 C (98.3 F) 06/24/2021 12:42 PM SALT PLANT OPERATOR Respiratory Rate 18 06/24/2021 12:42 PM SALT PLANT OPERATOR Oxygen Saturation 94% 06/24/2021 12:42 PM SALT PLANT OPERATOR Inhaled Oxygen Concentration - - Weight 93 kg (205 lb) 06/23/2021 9:54 AM SALT PLANT OPERATOR Height 165.1 cm (5' 5) 06/23/2021 10:40 PM SALT PLANT OPERATOR Body Mass Index 34.11 06/23/2021 9:54 AM SALT PLANT OPERATOR Plan of Treatment Health Maintenance Due Date Last Done Comments DTAP/TDAP/TD VACCINES (1 - Tdap) 10/19/1978 BREAST CANCER SCREENING 1999 COLORECTAL SCREENING 10/19/2004 Colorectal Cancer Screening 10/19/2004 FIT-DNA Q 3 years 10/19/2004 FIT/FOBT Q 1 year 10/19/2004 Flex Sig/CT Colonography Q 5 years 10/19/2004 PNEUMOCOCCAL VACCINE 50+ YEA RS (1 of 1 - PCV) 10/19/2009 ZOSTER VACCINE (1 of 2) 10/19/2009 INFLUENZA VACCINE (#1) 2023 COVID-19 Vaccine ( season) 2024 05/19/2021, 10/30/2020, 10/02/2020 OSTEOPOROSIS SCREENING 10/19/2024 RSV VACCINE (60+ or ) (1 - 1-dose 75+ series) 10/19/2034 Medical Devices Implanted Type Area High Value Associate Device Identifier Shelf Expiration Date Model / Serial / Lot Seamguard Endogia 60 Prpl [id number] - [id number] Implanted:Qt y: 1 on 06/23/2021 at [facility] Biological N/A: Stomach [employer] [id number] 02/17/2024 12BSGTRI 60P / / [id number] Seamguard Endogia 60 Prpl [id number] - [id number] Implanted:Qt y: 1 on 06/23/2021 at [facility] Biological N/A: Stomach [employer] [id number] 02/17/2024 12BSGTRI 60P / / [id number] Seamguard Endogia 60 Blk [id number] - [id number] Implanted:Qt y: 1 on 06/23/2021 at [facility] Biological N/A: Stomach [employer] [id number] 02/08/2024 12BSGTRI 60B / / [id number] Seamguard Endogia 60 Prpl [id number] - [id number] Implanted:Qt y: 1 on 06/23/2021 at [facility] Biological N/A: Stomach [employer] [id number] 02/17/2024 12BSGTRI 60P / / [id number] Seamguard Endogia 60 Blk [id number] - [id number] Implanted:Qt y: 1 on 06/23/2021 at [facility] Biological N/A: Stomach [employer] [id number] 02/08/2024 12BSGTRI 60B / / [id number] Insurance RX [employer] RX Member Subscriber Plan / Payer (Ef fective 2021-Present) Name:Kaylin Reis Relation to Subscriber:Self Name:Kaylin Reis Subscriber ID:Not on file Payer ID:Not on file Group ID:[id number] Type:RX Commercial Address: [employer] PL[employer] (INTERNAL) [facility] Internal Plans Advance Directives For more information, please contact: [phone] * Full Code (Latest Code Status on File) Date Activated Date Inactivated Comments 06/23/2021 3:34 PM 06/24/2021 6:13 PM * Full Code Date Activated Date Inactivated Comments 06/23/2021 9:31 AM 06/23/2021 3:34 PM Care Teams Chronic Disease Manager Relationship Specialty Start Date End Date Wilson Mercado MD [address] [place] [phone] PCP - General Family Practice 06/04/21
[2024-10-25 14:56] VITALS: BP 164/93; PULSE 66; RESP 16; TEMP 36.6; O2SAT 100
--- NOTE | 2024-10-25 16:41 | ED.NECK ---
HPI - Neck Pain/Injury General Chief Complaint: Neck Pain/Injury Stated Complaint: stiff neck Time Seen by Provider: 10/25/24 15:10 Source: patient and RN notes reviewed Mode of arrival: ambulatory Limitations: no limitations History of Present Illness HPI Narrative: 64-year-old female presents Express Care complaining of right-sided neck pain for 1 week. Patient says she was weedeating 1 week ago believe she pulled a muscle in her neck while doing that. Patient reports having pain that is worse with movement of her neck. Patient denies any falls or injuries to her neck. Patient has been trying Tylenol and ibuprofen with minimal relief. Patient's have a hard time working or lifting things due to the pain. Patient denies any numbness or tingling to her right arm, headaches, blurry vision, weakness, nausea, vomiting, or any other symptoms. Related Data Home Medications ?Medication ?Instructions ?Recorded ?Confirmed ?Last Taken ?Type aspirin 81 mg tablet,delayed 81 mg PO DAILY 07/18/19 06/20/23 11/17/19 History release (Adult Low Dose Aspirin) methylphenidate HCl 20 mg tablet 20 mg PO TID 06/20/23 06/20/23 Unknown History (Ritalin) omeprazole 20 mg tablet,delayed 20 mg PO DAILY 06/20/23 06/20/23 Unknown History release venlafaxine 75 mg capsule,extended mg PO 10/25/24 Unknown History release 24 hr Allergies Allergy/AdvReac Type Severity Reaction Status Date / Time Sulfa (Sulfonamide Allergy Mild RASH Verified 10/25/24 15:04 Antibiotics) indapamide AdvReac Mild Cough Verified 10/25/24 15:13 lisinopril AdvReac Mild Cough Verified 10/25/24 15:13 Review of Systems Review of Systems: CONSTITUTIONAL: Denies fever, chills, or sweats. EYES: Denies visual changes, redness, or discharge. ENT: Denies rhinorrhea, congestion, sore throat, or otalgia. CARDIOVASCULAR: Denies chest pain, palpitations, or edema. RESPIRATORY: Denies cough or dyspnea. GASTROINTESTINAL: Denies abdominal pain, nausea, vomiting, or diarrhea. GENITOURINARY: Denies dysuria or hematuria. SKIN: Denies rash or itching. MUSCULOSKELETAL: Denies back pain, joint pain, or myalgia. Positive for neck pain NEUROLOGIC: Denies headache, numbness, or weakness. PSYCHIATRIC: Denies anxiety or depression. All other systems reviewed are negative, except as documented in HPI. [facility] Past Medical History Medical History Obesity Anxiety IBS (irritable bowel syndrome) Gastroesophageal reflux disease Asthma HTN (hypertension) Depression Surgical History Surgical History H/O section Social History Social History Smoking status: Current every day smoker Tobacco type: e-cigarettes/vaping Gender identity (if verbalized by the patient): Female Comments At the time of my signature, I reviewed and agree with the nursing past medical, surgical, social, and family history. There is no relevant family history pertinent to the patient complaint. Exam Narrative: GENERAL: This is a well-nourished, well-developed adult, in no apparent distress. They are non ill-appearing, nontoxic appearing. HEAD: normocephalic, atraumatic. EYES: Sclera clear/white. Conjunctiva normal. Vision is grossly intact. Extraocular movements intact EARS: External ears normal, Hearing grossly intact. NOSE: External nose normal THROAT: Mucous membranes moist NECK: Neck supple, non-tender without lymphadenopathy, masses or thyromegaly. Pain is elicited with turning her neck left or right. Pain with neck flexion and extension. Tenderness to palpation to the right trapezius muscle. CARDIOVASCULAR: Regular rate and rhythm RESPIRATORY: Respiratory rate normal, respiratory effort nonlabored, no respiratory distress SKIN: warm, Dry, intact with no suspicious lesions or rash, good texture and turgor. NEURO: awake, alert, and oriented to person, place and time. There were no obvious focal neurologic abnormalities. EXTREMITIES: No joint tenderness, effusion, or edema noted. Course Course Emergency Course: Portions of this record may have been created with voice recognition software Level of Care: Express Care Visit Vital Signs Vital signs: Vital Signs Temperature 97.9 F 10/25/24 14:56 Pulse Rate 66 10/25/24 14:56 Respiratory Rate 16 10/25/24 14:56 Blood Pressure 164/93 H 10/25/24 14:56 Pulse Oximetry 100 10/25/24 14:56 Oxygen Delivery Room Air 10/25/24 14:56 Temperature 97.9 F 10/25/24 14:56 Pulse Rate 66 10/25/24 14:56 Respiratory Rate 16 10/25/24 14:56 Blood Pressure 164/93 H 10/25/24 14:56 Pulse Oximetry 100 10/25/24 14:56 Oxygen Delivery Room Air 10/25/24 14:56 Reviewed MDM - Neck Pain/Injury MDM Narrative Medical decision making narrative: Likely patient has a neck strain from weedeating. Will prescribe muscle relaxers and lidocaine patches as needed for pain and muscle spasms. Discussed physical exam findings. Advised supportive measures and signs/symptoms to go to the ER. Pt is appropriate for outpt treatment and f/u. Differential Diagnosis Differential diagnosis: Likely cervical radiculopathy, cervical spondylosis and strain of neck muscle Critical Care Time Critical Care Time Critical Care Time: No Discharge Plan Discharge Clinical Impression: Acute strain of neck muscle Qualifiers: Encounter type: initial encounter Qualified Code(s): S16.1XXA - Strain of muscle, fascia and tendon at neck level, initial encounter Patient Disposition: Home Condition: Stable Instructions: Neck Pain (ED) Additional Instructions: Apply ice or heat 15-20 minute intervals several times a day You May use lidocaine patches as directed. Motrin 600mg -800mg every 8 hours, alternate with Tylenol 1000mg every 8 hours as needed Take a muscle relaxers as directed. Please do not drive or operate heavy machinery while taking this medication or work because this medication may make you drowsy Follow up with your primary care provider 1 week if pain persist. If you develop excruciating pain, numbness or tingling your arm, weakness, or any other concerns please go to the ER immediately. Patient Language: Belarusian Prescriptions: New methocarbamol 750 mg tablet 750 mg PO TID Qty: 10 0RF lidocaine 5 % adhesive patch,medicated 1 patch topical DAILY Qty: 15 0RF Rx Instructions: leave on most painful area for up to 12 hrs No Action bupropion HCl 300 mg tablet extended release 24 hr 300 mg PO QAM 30 Days Qty: 30 0RF albuterol sulfate 90 mcg/actuation HFA aerosol inhaler 2 puff inhalation Q4-6H PRN (Reason: shortness of breath or wheezing) 30 Days Qty: 8.5 0RF methylphenidate HCl [Ritalin] 20 mg Tablet 20 mg PO TID omeprazole 20 mg Tablet,Delayed Release (Dr/Ec) 20 mg PO DAILY aspirin [Adult Low Dose Aspirin] 81 mg Tablet,Delayed Release (Dr/Ec) 81 mg PO DAILY fluticasone propionate [24 Hour Allergy Relief] 50 mcg/actuation spray,suspension 1 spray intranasal BID Qty: 16 0RF Rx Instructions: administer into each nostril venlafaxine 75 mg capsule,extended release 24hr PO Follow-up/Referrals: PHYSICIAN,COMMUNICATIONS TECHNICIAN [Primary Care Provider] - Stand Alone Forms: Work/School Release IP Time of Disposition: 15:25
== END 2024-10-25 15:28 | disposition home or self-care (01) ==
DX: S16.1XXA Strain of muscle, fascia and tendon at neck level, initial encounter (principal); X50.1XXA Overexertion from prolonged static or awkward postures, initial encounter; Y93.H2 Activity, gardening and landscaping; F17.290 Nicotine dependence, other tobacco product, uncomplicated; I10 Essential (primary) hypertension; E66.9 Obesity, unspecified; Z68.25 Body mass index [BMI] 25.0-25.9, adult; J45.909 Unspecified asthma, uncomplicated; K21.9 Gastro-esophageal reflux disease without esophagitis; Z79.82 Long term (current) use of aspirin
CPT/HCPCS: 99213; G0463